=== PATIENT | female | born 1945 | race Caucasian/White ===

== ENCOUNTER 2019-10-19 11:10 | Outpatient (CLI) | payer MEDICARE, OTHER ==
[2019-10-19 13:07] LABS: BASOPHILS # (AUTO) 0.02 x10^3/uL (0-0.1); BASOPHILS % (AUTO) 0 % (0-1); EOSINOPHILS # (AUTO) 0.01 x10^3/uL (0-0.4); EOSINOPHILS % (AUTO) 0 % (1-7); LYMPHOCYTES # (AUTO) 1.57 x10^3/uL (1-3.4); LYMPHOCYTES % (AUTO) 23 % (22-44); MD NO; MEAN CORPUSCULAR HEMOGLOBIN 32.4 pg (27.0-34.8); MEAN CORPUSCULAR HGB CONC 33.5 g/dL (32.4-35.8); MEAN CORPUSCULAR VOLUME 96.8 fL (80-100); MEAN PLATELET VOLUME 7.5 fL (7.4-10.4); MONOCYTES # (AUTO) 0.66 x10^3/uL (0.2-0.8); MONOCYTES % (AUTO) 10 % (2-9); NEUTROPHILS # (AUTO) 4.68 x10^3/uL (1.8-6.8); NEUTROPHILS % (AUTO) 67 % (42-75); PLATELET COUNT 239 x10^3/uL (130-400); RED BLOOD COUNT 4.77 x10^6/uL (3.82-5.3); RED CELL DISTRIBUTION WIDTH 14.1 % (9.6-15.2)
[2019-10-19 13:14] LABS: ALANINE AMINOTRANSFERASE 29 U/L (12-78); ALBUMIN 4.1 g/dL (3.4-5.0); ANION GAP 7 mmol/L (5-15); CALCIUM 9.2 mg/dL (8.5-10.1); CHLORIDE 103 mmol/L (98-107); CREATININE 0.65 mg/dL (0.55-1.02)
[2019-10-19 13:16] LABS: ALKALINE PHOSPHATASE 111 U/L (45-117); BILIRUBIN,TOTAL 1.3 mg/dL (0.2-1.0); TOTAL PROTEIN 7.1 g/dL (6.4-8.2)
[2019-10-19 13:21] LABS: MICROSCOPIC NOT IND
[2019-10-19] MEDS ORDERED: TURM538C PO (14:19)
[2019-10-19] MEDS ORDERED: [UNRECOGNIZED DRUG - OTHER] PO (14:19)
[2019-10-19] MEDS ORDERED: NAPR220C62 PO (14:19)
[2019-10-19] MEDS ORDERED: ATOR20TA37 PO (14:19)
[2019-10-19] MEDS ORDERED: HYDR12.517 PO (14:19)
[2019-10-19] MEDS ORDERED: MULT-449 PO (14:19)
== END 2019-10-19 23:59 | disposition home or self-care (01) ==
LOC: STAR 11:10
PROVIDERS: ATTEND Orthopaedic Surgery
DX: Z01.818 Encounter for other preprocedural examination (principal); Z11.59 Encounter for screening for other viral diseases; M17.11 Unilateral primary osteoarthritis, right knee; M25.561 Pain in right knee; I49.8 Other specified cardiac arrhythmias
CPT/HCPCS: 36415; 80053; 81003; 85025; 87081; 87806; 93005; U0001; G0475

== ENCOUNTER 2019-10-23 06:16 | Observation (INO) | payer MEDICARE, OTHER ==
[~2019-10-23] VITALS: Ht 162.6 cm; Wt 78.1 kg
[~2019-10-23 06:16] MED LIST: ATOR20TA37 PO; HYDR12.517 PO; MULT-449 PO; NAPR220C62 PO; TURM538C PO; [UNRECOGNIZED DRUG - OTHER] PO
[2019-10-23] MEDS ORDERED: VANCOMYCIN PMX 1GM/200ML 200 ML IV ONE (06:30)
[2019-10-23] MEDS ORDERED: morphine SULFATE/PF 1 MG/ML, 10ML ONE (06:31)
[2019-10-23] MEDS ORDERED: VANCOMYCIN 1,000 MG ONE (06:31)
[2019-10-23] MEDS ORDERED: ROPIvacaine/PF 0.2%, 20 ML ONE (06:31)
[2019-10-23] MEDS ORDERED: KETOROLAC 60 MG/2 ML ONE (06:31)
[2019-10-23] MEDS ORDERED: SODIUM CHLORIDE 0.9% 50 ML ONE (06:31)
[2019-10-23] MEDS ORDERED: TRANEXAMIC ACID 100 MG/ML, 10ML ONE (06:31)
[2019-10-23] MEDS ORDERED: BACITRACIN 50,000 UNIT ONE (06:32)
[2019-10-23] MEDS ORDERED: EPINEPHRINE 1 MG/ML, 1ML ONE (06:32)
[2019-10-23] MEDS ORDERED: LACTATED RINGERS 1,000 ML IV SCH (06:40)
[2019-10-23] MEDS ORDERED: LIDOCAINE 1%, 20ML ONE (06:47)
[2019-10-23] MEDS ORDERED: MAGNESIUM SULFATE 1 GM/2 ML ONE (06:47)
[2019-10-23] MEDS ORDERED: FENTANYL PF 250 MCG/5ML ONE (06:52)
[2019-10-23] MEDS ORDERED: PROPOFOL 10 MG/ML, 20ML ONE ×2 (06:52→09:27)
[2019-10-23] MEDS ORDERED: MIDAZOLAM 1 MG/ML, 2ML ONE ×2 (06:52→10:24)
[2019-10-23] MEDS ORDERED: HALOPERIDOL 5 MG/ML IV PRN (07:00)
[2019-10-23] MEDS ORDERED: HYDROmorphone 1 MG/ML, 1ML INJ IVPush PRN (07:00)
[2019-10-23] MEDS ORDERED: ONDANSETRON 2MG/ML, 2ML IVPush PRN ×2 (07:00→10:00)
[2019-10-23] MEDS ORDERED: ALBUTEROL/IPRATROPIUM 2.5MG/0.5MG, 3 ML NPPB PRN (07:00)
[2019-10-23] MEDS ORDERED: hydrALAzine 20 MG/ML, 1ML IV PRN (07:00)
[2019-10-23] MEDS ORDERED: METOCLOPRAMIDE 5 MG/ML, 2ML IVPush PRN (07:00)
[2019-10-23] MEDS ORDERED: LABETALOL 5MG/ML, 20ML IV PRN (07:00)
[2019-10-23] MEDS ORDERED: EPHEDRINE 50 MG/ML, 1ML IVPush PRN (07:00)
[2019-10-23] MEDS ORDERED: DIPHENHYDRAMINE 50 MG/ML, 1ML IVPush PRN (07:00)
[2019-10-23] MEDS ORDERED: OXYcodone 5 MG/5 ML ORAL.SOL UDC PO PRN (07:00)
[2019-10-23] MEDS ORDERED: MEPERIDINE/PF 25MG/0.5ML IVPush PRN (07:00)
[2019-10-23] MEDS ORDERED: KETOROLAC 30 MG/1 ML IV PRN (07:00)
[2019-10-23] MEDS ORDERED: HYDROcodone/APAP 7.5-325MG/15ML UDC PO PRN (07:00)
[2019-10-23] MEDS ORDERED: CHLORHEXIDINE 15 ML UDC MM ONE (07:00)
[2019-10-23] MEDS ORDERED: EPHEDRINE 50 MG/ML, 1ML IM PRN (07:00)
[2019-10-23] MEDS ORDERED: MIDAZOLAM 1 MG/ML, 2ML IV PRN (07:00)
[2019-10-23] MEDS ORDERED: LIDOCAINE-MPF 2% ,5ML ONE (07:33)
[2019-10-23] MEDS ORDERED: CEFAZOLIN 1,000 MG ONE (07:33)
[2019-10-23] MEDS ORDERED: hydrALAzine 20 MG/ML, 1ML ONE (07:33)
[2019-10-23] MEDS ORDERED: LORazepam 2 MG/ML, 1ML IVPush PRN ×2 (08:00→10:00)
[2019-10-23] MEDS ORDERED: VANCOMYCIN PMX 1GM/200ML 200 ML IVPB ONE (08:00)
[2019-10-23] MEDS ORDERED: ACETAMINOPHEN 325 MG TABLET PO PRN ×2 (08:00→10:00)
[2019-10-23] MEDS ORDERED: morphine SULFATE 10 MG/ML, 1ML IVPush PRN ×2 (08:00→10:00)
[2019-10-23] MEDS ORDERED: TRANEXAMIC ACID 1,000 MG in SODIUM CHLORIDE 0.9% 100 ML IV ONE ×2 (08:00→14:00)
[2019-10-23] MEDS ORDERED: CEFAZOLIN PMX 1GM/50ML 50 ML IVPB SCH (08:00)
[2019-10-23] MEDS ORDERED: ZOLPIDEM 5MG TABLET PO PRN ×2 (08:00→10:00)
[2019-10-23] MEDS ORDERED: DIPHENHYDRAMINE 50 MG CAPSULE PO PRN ×2 (08:00→10:00)
[2019-10-23] MEDS ORDERED: DEXAMETHASONE 4 MG/ML, 1ML ONE (09:27)
[2019-10-23] MEDS ORDERED: GLYCOPYRROLATE 0.2MG/1ML, 5ML ONE (09:27)
[2019-10-23] MEDS ORDERED: ROCURONIUM 10MG/ML,5ML ONE (09:27)
[2019-10-23] MEDS ORDERED: D5%-0.45% NACL 1,000 ML IV SCH (09:48)
[2019-10-23] MEDS ORDERED: FENTANYL PF 100 MCG/2ML ONE ×2 (09:49→10:31)
[2019-10-23] MEDS: FENTANYL PF 100 MCG/2ML IV PRN ×4 (09:53→10:42)
[2019-10-23] MEDS ORDERED: ONDANSETRON 2MG/ML, 2ML ONE (09:54)
[2019-10-23] MEDS ORDERED: OXYcodone/APAP 7.5/325MG TABLET PO PRN (10:00)
[2019-10-23] MEDS ORDERED: HALOPERIDOL 5 MG/ML ONE (10:49)
[2019-10-23] MEDS ORDERED: HYDROmorphone 1 MG/ML, 1ML INJ ONE (10:54)
[2019-10-23] MEDS: D5%-0.45% NACL 1,000 ML IV SCH ×2 (12:58→23:16)
[2019-10-23 13:00] VITALS: BP 96/54
[2019-10-23 13:37] VITALS: BP 96/54
[2019-10-23] MEDS: OXYcodone/APAP 7.5/325MG TABLET PO PRN ×2 (14:14→19:58)
[2019-10-23] MEDS: ONDANSETRON 2MG/ML, 2ML IVPush PRN (16:13)
[2019-10-23] MEDS: CEFAZOLIN PMX 2GM/50ML 50 ML IVPB SCH ×2 (16:13→23:59)
[2019-10-23 19:42] VITALS: BP 120/78
[2019-10-23 23:28] VITALS: BP 99/56
[2019-10-24] MEDS: OXYcodone/APAP 7.5/325MG TABLET PO PRN
[2019-10-24] MEDS: D5%-0.45% NACL 1,000 ML IV SCH ×5 (00:30→20:25)
[2019-10-24 03:23] VITALS: BP 109/67
[2019-10-24] MEDS: ONDANSETRON 2MG/ML, 2ML IVPush PRN (06:03)
[2019-10-24] MEDS ORDERED: NAPROXEN 250 MG TABLET PO PRN (06:30)
[2019-10-24 07:00] VITALS: BP 103/60
[2019-10-24] MEDS: DOCUSATE 100 MG CAPSULE PO SCH ×2 (08:09→20:48)
[2019-10-24] MEDS: MULTIVITAMIN 1 TABLET PO SCH (08:09)
[2019-10-24] MEDS: ASPIRIN 325 MG TABLET EC PO SCH ×2 (08:09→17:53)
[2019-10-24] MEDS: HYDROCHLOROTHIAZIDE 12.5 MG CAPSULE PO SCH (08:09)
[2019-10-24] MEDS: CEFAZOLIN PMX 2GM/50ML 50 ML IVPB SCH (08:09)
[2019-10-24] MEDS ORDERED: VANCOMYCIN PMX 1GM/200ML 200 ML IVPB ONE (08:30)
[2019-10-24 14:10] VITALS: BP 128/60
[2019-10-24] MEDS: HYDROcodone/APAP 5/325 TABLET PO PRN ×2 (15:32→20:49)
[2019-10-24] MEDS ORDERED: ASPIRIN 325 MG TABLET EC PO SCH (17:00)
[2019-10-24 19:11] VITALS: BP 138/78
[2019-10-24] MEDS ORDERED: ATORVASTATIN 20 MG TABLET PO SCH (21:00)
[2019-10-24] MEDS ORDERED: DOCUSATE 100 MG CAPSULE PO SCH (21:00)
[2019-10-25] MEDS: D5%-0.45% NACL 1,000 ML IV SCH ×2 (01:30→05:37)
[2019-10-25 01:50] VITALS: BP 120/59
[2019-10-25] MEDS: HYDROcodone/APAP 5/325 TABLET PO PRN (03:18)
[2019-10-25 06:28] VITALS: BP 123/76
[2019-10-25] MEDS: DOCUSATE 100 MG CAPSULE PO SCH (07:23)
[2019-10-25] MEDS: ASPIRIN 325 MG TABLET EC PO SCH (07:23)
[2019-10-25] MEDS: MULTIVITAMIN 1 TABLET PO SCH (07:23)
[2019-10-25] MEDS: HYDROCHLOROTHIAZIDE 12.5 MG CAPSULE PO SCH (07:23)
== END 2019-10-25 08:51 | disposition home or self-care (01) ==
LOC: OR 06:16 → INTOOBSV 12:04 → 4NE 12:04
PROVIDERS: ADMIT Orthopaedic Surgery; ATTEND Orthopaedic Surgery
DX: M17.0 Bilateral primary osteoarthritis of knee (principal); I10 Essential (primary) hypertension; Z79.899 Other long term (current) drug therapy; Z87.891 Personal history of nicotine dependence
CPT/HCPCS: 27447; 36415; 73564; 85018; 96365; 96366; 96367; 96375; 96376; 97110; 97161; 97165; 97530; C1713; C1776; G0378; J0171; J0360; J0690; J1100; J1170; J1885; J2060; J2250; J2274; J2405; J2704; J2795; J3010; J3370; J3475; J3490

== ENCOUNTER → 2020-06-18 | Outpatient (CLI) | payer MEDICARE, OTHER ==
[~2020-06-18] MED LIST changes: +BIOT25005 PO; +CYAN1TAB29 PO; +TURM500C4 PO; +[UNRECOGNIZED DRUG - OTHER] PO; +vitamin d3 PO
[2020-06-18 14:25] LABS: BASOPHILS % (AUTO) 1 % (0-1); EOSINOPHILS % (AUTO) 0 % (1-7); LYMPHOCYTES % (AUTO) 31 % (22-44); MEAN CORPUSCULAR HEMOGLOBIN 32.5 pg (27.0-34.8); MEAN CORPUSCULAR HGB CONC 34.9 g/dL (32.4-35.8); MEAN PLATELET VOLUME 7.9 fL (7.4-10.4); MONOCYTES % (AUTO) 10 % (2-9); NEUTROPHILS % (AUTO) 59 % (42-75); PLATELET COUNT 224 x10^3/uL (130-400); RED BLOOD COUNT 4.69 x10^6/uL (3.82-5.3); RED CELL DISTRIBUTION WIDTH 13.8 % (9.6-15.2)
[2020-06-18 14:27] LABS: MD NO
[2020-06-18 14:41] LABS: ALANINE AMINOTRANSFERASE 36 U/L (12-78); ALBUMIN 4.2 g/dL (3.4-5.0); ANION GAP 3 mmol/L (5-15); CALCIUM 9.2 mg/dL (8.5-10.1); CHLORIDE 105 mmol/L (98-107); CREATININE 0.68 mg/dL (0.55-1.02)
[2020-06-18 14:43] LABS: ALKALINE PHOSPHATASE 157 U/L (45-117); BILIRUBIN,TOTAL 1.2 mg/dL (0.2-1.0); TOTAL PROTEIN 7.2 g/dL (6.4-8.2)
[2020-06-18 15:17] LABS: MICROSCOPIC INDICATED
== END | disposition home or self-care (01) ==
LOC: STAR 13:19
PROVIDERS: ATTEND Orthopaedic Surgery
DX: Z01.812 Encounter for preprocedural laboratory examination (principal); Z20.822 Contact with and (suspected) exposure to COVID-19; M17.9 Osteoarthritis of knee, unspecified; I49.8 Other specified cardiac arrhythmias
CPT/HCPCS: 80053; 81001; 85025; 87081; 87635; 87806; 93005; G0475